=== PATIENT | female | born 1945 | race African-American/Black ===

== ENCOUNTER → 2018-04-27 | Outpatient (CLI) | payer BC ==
[~2018-04-27] MED LIST: ESTR1TAB15 PO; LATA2.5D3 OU; LISI1TAB7 PO; LOVA20TA2 PO; MELO7.5T29 PO; POTA20TA12 PO
--- NOTE | 2018-04-28 11:41 | RAD ---
DATE: 04/27/2018 EXAM: MAMMO SABRINA SCREENING BILATERAL HISTORY: Routine screening COMPARISON: 03/28/2015 This study was interpreted with the benefit of Computerized Aided Detection (CAD). Breast Density: HETERO The breast parenchyma is heterogenously dense, which could reduce sensitivity of mammography. Breast parenchyma level C. FINDINGS: 2-D and 3-D tomosynthesis imaging was performed in CC and MLO projections. The breasts are heterogeneous in a multinodular pattern. There is a cluster of 2 benign-appearing lymph node type densities in the posterolateral aspect of the left breast which are unchanged. There is a 5 mm nodule in the lateral aspect of the right breast at approximately the 9:00-10:00 location as seen on CC tomosynthesis images #34. It is unclear whether this nodule was present on the previous study due to technical differences. No spiculated mass or architectural distortion is seen. There are benign type calcifications in both breasts. No suspicious microcalcifications are evident. IMPRESSION: Right lateral breast nodule as described above. Sonographic evaluation is suggested. BI-RADS CATEGORY: 0 INCOMPLETE: NEEDS ADDITIONAL IMAGING EVALUATION AND/OR PRIOR MAMMOGRAMS FOR COMPARISON. RECOMMENDED FOLLOW-UP: ADD ADDITIONAL IMAGING PQRS compliance statement: Patient information was entered into a reminder system with a target due date for the next mammogram. Mammography is a sensitive method for finding small breast cancers, but it does not detect them all and is not a substitute for careful clinical examination. A negative mammogram does not negate a clinically suspicious finding and should not result in delay in biopsying a clinically suspicious abnormality. "Our facility is accredited by the [employer] Mammography Program."
== END | disposition home or self-care (01) ==
LOC: MAMMO 13:44
PROVIDERS: ATTEND Family Medicine
DX: Z12.31 Encounter for screening mammogram for malignant neoplasm of breast (principal); N63.11 Unspecified lump in the right breast, upper outer quadrant
CPT/HCPCS: 77063; 77067

== ENCOUNTER → 2018-05-01 | Outpatient (CLI) | payer BC ==
--- NOTE | 2018-05-01 11:37 | RAD ---
Right breast ultrasound, 05/01/2018: History: Right breast nodule A targeted ultrasound exam of the right breast was performed laterally where a small nodule was seen on the screening mammograms. At the 10:00 location approximately 5.5 cm from the nipple there is a small smooth hypoechoic nodule. It is wider than tall. There are low level internal echoes. There is no significant posterior acoustic enhancement or shadowing. It measures 4 x 5 x 2 mm. It has a benign appearance and is probably a fibroadenoma or complicated cyst. This appears to correspond location to the mammographic finding. No other sonographic abnormality was seen in this region. IMPRESSION: Probably benign right breast nodule. Follow-up right breast ultrasound and right mammography in 6 months is suggested. BI-RADS 3-probably benign findings
== END | disposition home or self-care (01) ==
LOC: US 09:46
PROVIDERS: ATTEND Family Medicine
DX: R92.8 Other abnormal and inconclusive findings on diagnostic imaging of breast (principal); N63.11 Unspecified lump in the right breast, upper outer quadrant
CPT/HCPCS: 76641

== ENCOUNTER → 2018-10-19 | Outpatient (CLI) | payer BC ==
--- NOTE | 2018-10-19 13:25 | RAD ---
DATE: 10/19/2018 EXAM: DIGITAL DIAGNOSTIC RT, BREAST RIGHT HISTORY: Follow-up breast nodule COMPARISON: 04/27/2018 This study was interpreted with the benefit of Computerized Aided Detection (CAD). Breast Density: HETERO The breast parenchyma is heterogenously dense, which could reduce sensitivity of mammography. Breast parenchyma level C. FINDINGS: 2-D and 3-D tomosynthesis imaging was performed in CC and MLO projections. The fibroglandular pattern is multinodular in character. A 5 mm nodule seen superolaterally in the right breast on the previous study is currently best seen on oblique tomosynthesis images #26. It appears unchanged in size. No new or enlarging right breast densities are seen. There is minimal benign type calcification. No suspicious microcalcifications have developed. Right breast ultrasound, 10/19/2018: A targeted ultrasound exam of the right breast was performed in the upper outer quadrant or a small nodule was identified on the 05/01/2018 study. The small, slightly hypoechoic nodule is redemonstrated at the 10:00 location, approximately 5.5 cm from the nipple. It is smooth and oval-shaped, being wider than tall. It measures 4 x 2 x 5 mm and appears unchanged since the previous study. There is no significant posterior acoustic enhancement or shadowing. No internal color flow is seen. This is probably a small fibroadenoma or complicated cyst. No new abnormality is seen. IMPRESSION: Stable, probably benign right breast nodule as described above. Follow-up bilateral mammography and right breast ultrasound in 6 months is suggested. BI-RADS CATEGORY: 3 PROBABLY BENIGN FINDING(S)-SHORT INTERVAL FOLLOW-UP SUGGESTED RECOMMENDED FOLLOW-UP: 6M 6 MONTH FOLLOW-UP PQRS compliance statement: Patient information was entered into a reminder system with a target due date for the next mammogram. Mammography is a sensitive method for finding small breast cancers, but it does not detect them all and is not a substitute for careful clinical examination. A negative mammogram does not negate a clinically suspicious finding and should not result in delay in biopsying a clinically suspicious abnormality. "Our facility is accredited by the [employer] Mammography Program."
== END | disposition home or self-care (01) ==
LOC: MAMMO 12:06
PROVIDERS: ATTEND Family Medicine
DX: R92.8 Other abnormal and inconclusive findings on diagnostic imaging of breast (principal)
CPT/HCPCS: 76641; 77065

== ENCOUNTER → 2019-06-03 | Outpatient (CLI) | payer BC ==
[~2019-06-03] MED LIST changes: +LISI1TAB20 PO; -LISI1TAB7 PO
--- NOTE | 2019-06-03 14:07 | RAD ---
DATE: 06/03/2019. EXAM: DIGITAL DIAGNOSTIC BILATERAL, BREAST RIGHT. HISTORY: Follow-up right breast nodule, bilateral surveillance. COMPARISON: 10/19/2018, 05/01/2018, 04/27/2018. This study was interpreted with the benefit of Computerized Aided Detection (CAD). FINDINGS: Breast Density: SCATTERED The breast parenchyma shows scattered fibroglandular densities. Breast parenchyma level B.. The nodule of concern superolaterally on the right remain stable and appear circumscribed. A density inferiorly on the right has stable correlates on most of these. Coarse calcifications in the exam are benign. There is no suspicious finding on the left. On today's sonography, at the 10:00 position 5.5 cm from the nipple a hypoechoic nodule corresponds with the mammographic finding and measures 4 x 2 mm. This may represent a complicated cyst or small fibroadenoma. There is no suspicious sonographic finding. BI-RADS CATEGORY: 3 PROBABLY BENIGN FINDING(S)-SHORT INTERVAL FOLLOW-UP SUGGESTED. RECOMMENDED FOLLOW-UP: 12M 12 MONTH FOLLOW-UP. 1. Recommend bilateral mammography in one year. Sonography could be performed at this time to demonstrate two-year stability and benignity of the right upper outer nodule. PQRS compliance statement: Patient information was entered into a reminder system with a target due date 06/03/2020 for the next mammogram. Mammography is a sensitive method for finding small breast cancers, but it does not detect them all and is not a substitute for careful clinical examination. A negative mammogram does not negate a clinically suspicious finding and should not result in delay in biopsying a clinically suspicious abnormality. "Our facility is accredited by the [employer] Mammography Program."
== END | disposition home or self-care (01) ==
LOC: MAMMO 12:43
PROVIDERS: ATTEND Family Medicine
DX: R92.1 Mammographic calcification found on diagnostic imaging of breast (principal); N63.11 Unspecified lump in the right breast, upper outer quadrant
CPT/HCPCS: 76641; 77066

== ENCOUNTER → 2020-06-06 | Outpatient (CLI) | payer BC ==
[~2020-06-06] MED LIST changes: +ESTR-113 PO; -ESTR1TAB15 PO
--- NOTE | 2020-06-06 13:40 | RAD ---
DATE: 06/06/2020 12:40 PM EXAM: MAMMO SABRINA DIAG BILAT HISTORY: Bilateral digital diagnostic mammogram. Patient is due for screening she is here for short-term follow-up of a probably benign nodule in the upper outer anterior third right breast. COMPARISON: Bilateral mammograms 04/27/2018, right mammogram 10/19/2018 and bilateral mammogram 06/03/2019. Bilateral CC and MLO views of the breasts were performed. Bilateral breast tomosynthesis was performed in CC and MLO projections. This study was interpreted with the benefit of Computerized Aided Detection (CAD). FINDINGS: Breast Density: SCATTERED The breast parenchyma shows scattered fibroglandular densities. Breast parenchyma level B Stable, mammographically benign 5 mm nodule in the upper outer quadrant right breast. Stability over greater than 2 years supports a benign etiology. No suspicious masses, microcalcifications or architectural distortion is present to suggest malignancy. The visualized axilla is unremarkable. IMPRESSION: No mammographic evidence of malignancy. BI-RADS CATEGORY: 2 BENIGN FINDING(S) RECOMMENDED FOLLOW-UP: 12M 12 MONTH FOLLOW-UP Annual screening mammography is recommended, unless clinically indicated sooner based on symptoms or change in physical exam. PQRS compliance statement: Patient information was entered into a reminder system with a target due date for the next mammogram. Mammography is a sensitive method for finding small breast cancers, but it does not detect them all and is not a substitute for careful clinical examination. A negative mammogram does not negate a clinically suspicious finding and should not result in delay in biopsying a clinically suspicious abnormality. "Our facility is accredited by the [employer] Mammography [employer]."
== END ==
LOC: MAMMO 12:33
PROVIDERS: ATTEND Family Medicine
DX: R92.8 Other abnormal and inconclusive findings on diagnostic imaging of breast (principal); N63.11 Unspecified lump in the right breast, upper outer quadrant
CPT/HCPCS: 77066; G0279; 77062

== ENCOUNTER → 2021-06-06 | Outpatient (CLI) | payer BC ==
[~2021-06-06] MED LIST changes: -LISI1TAB20 PO; +LISI1TAB39 PO
--- NOTE | 2021-06-06 13:21 | RAD ---
INDICATION : Routine Screening. COMPARISON: Multiple prior examinations including May 2019 TECHNIQUE: Standard mammogram screening views of the bilateral breasts were obtained with 3D tomosynt hesis. CAD was utilized. FINDINGS: The breasts are scattered density. No definite suspicious mass. IMPRESSION: BI-RADS Category 1: Negative. Recommend repeat screening exam in one year. The patient was placed into the recall system with a suggested recall date for follow up imaging. Mammography is the most sensitive method for finding small breast cancers, but it does not detect the m all and is not a substitute for careful clinical examination. A negative mammogram does not negate a clinically suspicious finding and should not result in delay in biopsying a clinically suspicious abnormality. Electronically signed by: Gómez Estrada MD (06/06/2021 1:19 PM) [id number]
== END ==
LOC: MAMMO 12:26
PROVIDERS: ATTEND Family Medicine
DX: Z12.31 Encounter for screening mammogram for malignant neoplasm of breast (principal)
CPT/HCPCS: 77063; 77067

== ENCOUNTER → 2021-08-01 | Outpatient (CLI) | payer BC ==
--- NOTE | 2021-08-02 08:06 | RAD ---
INDICATION: Reason: Mass Anterior LT Prox shoulder/ Humerus / Spl. Instructions: / History: COMPARISON: None. FINDINGS: Focused ultrasound images are obtained through the left anterior shoulder region at the area of becky rn for mass. 49 x 20 x 23 mm heterogenous masslike structure seen within the subcutaneous soft tissues. IMPRESSION: * Findings are suspicious for a subcutaneous solid mass at the left anterior shoulder region. Furth er workup option would include either obtaining MRI with and without contrast further assess given th at neoplastic etiology is within the differential. Alternative nonneoplastic causes such as soft tiss ue hematoma is also in differential. If the patient prefers percutaneous biopsy could be performed in stead of MRI. Electronically signed by: Gómez Estrada MD (08/02/2021 8:04 AM) [id number]
== END ==
LOC: US 14:16
PROVIDERS: ATTEND Family Medicine
DX: R22.32 Localized swelling, mass and lump, left upper limb (principal)
CPT/HCPCS: 76881

== ENCOUNTER → 2021-09-07 | Outpatient (CLI) | payer BC ==
--- NOTE | 2021-09-07 14:59 | KCIC ---
STUDY: MRI of the left shoulder without contrast INDICATION: Left shoulder mass. COMPARISON: Ultrasound evaluation of the left shoulder 08/01/2021 TECHNIQUE: Multiplanar MR imaging of the left shoulder performed without the use of intravenous or in tra-articular contrast. FINDINGS: AC joint: Minimal arthrosis. Within normal limits subacromial subdeltoid bursa. Rotator cuff: No tear or significant tendinosis. Rotator cuff muscular bulk is maintained. Labrum: No discrete tear. Long head biceps tendon: Intact and normally located. Cartilage: No high-grade or full-thickness chondral defect. Bones: Marrow signal is within normal limits. 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 No thickened septations or peripheral nodularity. Muscular striations seen along a portion of the lipoma. The lipoma measur es 4.4 cm in length by up to 1.6 cm AP by up to 2.3 cm mediolateral. Morphologically benign axillary lymph nodes. Within normal limits volume of joint fluid. No periarticular soft tissue edema. Impression: 1. 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 Dedicated follow-up is warranted only if there is development of pain or progressive increase in size. If this occurs, the repeat MRI should be performed both with and wit hout contrast assuming adequate renal function. 2. Intact rotator cuff, long head biceps and labrum. Electronically signed by: CAITLIN CERNA MD (09/07/2021 2:56 PM) [id number]
== END ==
LOC: KCIC MRI 12:57
PROVIDERS: ATTEND Family Medicine
DX: D17.79 Benign lipomatous neoplasm of other sites (principal); R22.30 Localized swelling, mass and lump, unspecified upper limb
CPT/HCPCS: 73221